=== PATIENT | female | born 1990 | race Asian ===

== ENCOUNTER 2021-08-02 13:15 | Inpatient (IN) | payer OTHER ==
[~2021-08-02] VITALS: Ht 170.2 cm; Wt 84.6 kg
[2021-08-02 13:39] VITALS: BP 121/67
[2021-08-02 14:49] LABS: ABSOLUTE NEUTROPHILS 5.9 thou/uL (1.4-8.2); BASOPHILS 0.3 % (0.0-2.0); HEMATOCRIT 37.8 % (37.0-47.0); HEMOGLOBIN 12.7 gm/dL (12.0-15.0); LYMPHOCYTES 6.5 % (24.0-44.0); MCH 28.9 pg (26.0-34.0); MCHC 33.5 g/dL (28.0-37.0); MCV 86.2 fL (80.0-100.0); MONOCYTES 2.8 % (1.0-8.0); PLATELET COUNT 139 thou/uL (150-400); POLYS 90.4 % (36.0-66.0); RBC 4.39 mil/uL (4.20-5.00); RDW 12.9 % (10.5-14.5); WBC 6.5 thou/uL (4.0-11.0)
[2021-08-02 15:15] LABS: CALCIUM 8.2 mg/dL (8.5-10.1); CREATININE 0.9 mg/dL (0.6-1.0); POTASSIUM 3.5 mmol/L (3.5-5.1)
[2021-08-02 15:25] LABS: ALBUMIN 3.4 g/dL (3.4-5.0); TOTAL BILIRUBIN 0.4 mg/dL (0.2-1.0); TOTAL PROTEIN 6.8 g/dL (6.4-8.2)
[2021-08-02 20:00] VITALS: BP 10/74
[2021-08-02 23:41] VITALS: BP 115/61
[2021-08-03 00:38] VITALS: BP 108/55
--- NOTE | 2021-08-03 01:40 | NUR ---
PT ADMITTED TO 3W ROOM 362, ARRIVED TO UNIT AT APPROXIMATELY 0030 ACCOMPANIED BY ED STAFF. PT ABLE TO AMBULATE AND SELF TRANSFER. PT IS A&OX4 AND ABLE TO COMMUNICATE WANTS AND NEEDS TO STAFF. PT IN COVID ISOLATION, PRESENTS WITH COUGH, SOB WITH EXERTION, MILD FEVER, WEAKNESS, HEADACHE. PT DOES DESATURATE WITH COUGHING, CURRENTLY ON 2L PER NASAL CANNULA WITH O2 SAT >94%. UP WITH STEADY GAIT TO BR. ORIENTED TO ROOM, BED CONTROLS. ADMISSION ASSESSMENTS CHARTED. WILL CONTINUE TO OBSERVE FOR CHANGES.
[2021-08-03 04:29] VITALS: BP 103/71
[2021-08-03 07:07] VITALS: BP 102/59
--- NOTE | 2021-08-03 09:48 | EKG ---
[place] [address] [facility] [place] [address] ELECTROCARDIOGRAM REPORT Name: ROSE GERARDO Room #: 362-P ADM IN M.R.#: [id number] Admission: 08/02/21 Attend Phys: Diana Cantor Discharge: Date of : 89 Report #: [id number] [facility] ED Test Date: 2021-08-02 Test Time: 15:23:13 Pat Name: ROSE GERARDO Department: Room: [facility] Gender: F Wealth Management Advisor: AIDA : 1990 Requested By: Vu Cardenas Order Number: [id number] MD: Anthony Rashid Measurements Intervals [place] Rate: 80 P: 35 SD: 148 QRS: 21 QRSD: 93 T: 8 QT: 407 QTc: 470 Interpretive Statements Sinus rhythm No significant abnormality Compared to ECG 08/18/2005 08:59:31 No significant changes Electronically Signed On 08-03-2021 9:48:46 THERMOFORMING MACHINE OPERATOR by Anthony Rashid [email or web address] <ELECTRONICALLY SIGNED> By: Anthony Rashid MD, [facility] 08/03/21 0948 1523 1523 Anthony Rashid MD, FACC /EPI
[2021-08-03 11:03] VITALS: BP 111/56
[2021-08-03 15:29] VITALS: BP 99/5
--- NOTE | 2021-08-03 18:58 | NUR ---
A/O X4. OFF O2. 92% ON RA. UP AD TIMOTHY. AFEBRILE. SLOWLY TOWARDS POC GOALS.
[2021-08-03 19:33] VITALS: BP 114/67
--- NOTE | 2021-08-03 22:23 | NUR ---
PT RESTING IN BED WATCHING TV. DRY COUGH. PRN FOR SLEEP AND COUGH PROVIDED. PT RECEIVED IV MEDICATION. PT DECLINED A SNACK. PT INDEP CALLS FOR ASSIST.
[2021-08-04 03:26] VITALS: BP 96/56
[2021-08-04 05:47] LABS: ALBUMIN 2.9 g/dL (3.4-5.0); CALCIUM 8.8 mg/dL (8.5-10.1); CREATININE 0.7 mg/dL (0.6-1.0); DIRECT BILIRUBIN 0.1 mg/dL (<0.1-0.2); PHOSPHORUS 3.1 mg/dL (2.5-4.9); TOTAL BILIRUBIN 0.3 mg/dL (0.2-1.0); TOTAL PROTEIN 6.6 g/dL (6.4-8.2)
[2021-08-04 07:30] VITALS: BP 104/62
--- NOTE | 2021-08-04 07:32 | HC ---
[facility] [place] [address] CONSULTATION Name: ROSE GERARDO Room #: 362-P ADM IN M.R.#: [id number] Admission: 08/02/21 Attend Phys: Diana Cantor Discharge: Date of : 89 Report #: [id number] THIS REPORT FOR: cc: Zen Pimentel MD [facility] - Family physician unknown Lele Escobar MD ~ DATE OF SERVICE: 08/03/2021 INFECTIOUS DISEASE CONSULTATION ATTENDING PHYSICIAN: Dr. Cantor. REASON FOR EVALUATION: COVID-19 infection. HISTORY OF PRESENT ILLNESS: Chart reviewed. The patient examined. 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 Has not been on immunosuppressive therapy, presented with a febrile illness primarily, has had some cough, gastrointestinal related signs and symptoms and was confirmed to have COVID positive test several days ago. On presentation, chest x-ray did show bilateral infiltrates, suggestive of pneumonitis. Influenza antigen testing was negative. She was found to be hypoxic, placed on supplemental oxygen 2 L per nasal cannula. She was initiated on therapy with Levaquin, remdesivir, corticosteroids. ALLERGIES: None. CURRENT MEDICATIONS: Include guaifenesin, enoxaparin, levofloxacin, dexamethasone, remdesivir. PAST MEDICAL HISTORY: History of pemphigus. SOCIAL HISTORY: Nonsmoker, no illicit drug use. Occasional ethanol. FAMILY HISTORY: Noncontributory. REVIEW OF SYSTEMS: Otherwise, unremarkable with the exception of the above. PHYSICAL EXAMINATION: GENERAL: She is alert, lucid, mild to moderate distress. VITAL SIGNS: Temperature on admission 103.2, more recently 97.8, pulse 61, respirations 18, blood pressure 102/59. SKIN: Warm, dry, no rashes. HEENT: Normocephalic. Extraocular muscles intact. NECK: Supple. LUNGS: Few scattered crackles at the bases. HEART: Regular. I do not appreciate a murmur. [facility] [address] [place] [address] CONSULTATION Name: ROSE GERARDO [facility] Room #: 362-[facility] IN M.R.#: [id number] Admission: 08/02/21 Attend Phys: Diana Cantor Discharge: Date of : 89 Report #: [id number] ABDOMEN: Soft, nontender. EXTREMITIES: No cyanosis. GENITOURINARY AND RECTAL: Deferred. LABORATORY DATA: Electrolytes: Sodium 132, potassium 3.5, chloride 98, bicarbonate is 19, BUN and creatinine 31 and 0.9, AST of 62, ALT of 29, albumin 3.4. CBC: White count 6.5, H and H 12.7 and 37.8, platelets of 139. ASSESSMENT AND PLAN: COVID-19 infection, complicated by pneumonitis. We will continue current approach as prescribed with remdesivir, corticosteroids. She does have evidence of bilateral pneumonitis on chest x-ray, although minimally symptomatic other than a cough; however, had high fevers, can exclude a secondary bacterial pneumonitis. ____ will continue Levaquin at this point as well. We will try to collect a sputum if able. At this point, she is not overtly toxic. We will add incentive spirometry. Monitor expectantly. If would deteriorate, would add some baricitinib. <ELECTRONICALLY SIGNED> By: Lele Escobar MD 08/04/21 0732 0843 [id number] Lele Escobar MD /nt
[2021-08-04] MEDS ORDERED: DEXAMETHASONE6 MG PO (09:31)
[2021-08-04] MEDS ORDERED: GUAIFEN-CODEINE10 ML PO (09:32)
[2021-08-04] MEDS ORDERED: ASA81BEC PO (09:32)
[2021-08-04 11:12] VITALS: BP 104/62
--- NOTE | 2021-08-04 12:38 | NUR ---
DISCHARGE NOTE: GAVE PT DISCHARGE INFORMATION. SCRIPTS GIVEN, WENT OVER NEW MEDICATION INFORMATION. DC IV AND TELEMETRY. ALL BELONGINGS WITH PT. WAITING FOR RIDE HOME WITH BOYFRIEND. WILL CONTINUE TO MONITOR.
[2021-08-05] MEDS ORDERED: ASA81BEC PO (12:01)
[2021-08-05] MEDS ORDERED: GUAIFEN-CODEINE10 ML PO (12:01)
[2021-08-05] MEDS ORDERED: DECADRON6 MG PO (12:01)
== END 2021-08-04 12:59 | disposition home or self-care (01) | DRG 177 ==
LOC: ER 13:15 → 3W 16:51 → EROBS 16:51 → 3W 08-03 00:26
PROVIDERS: Emergency Medicine; ADMIT Hospitalist; ATTEND Hospitalist
PROC: XW033E5 Introduction of Remdesivir Anti-infective into Peripheral Vein, Percutaneous Approach, New Technology Group 5 (ICD-10-PCS; principal; 2021-08-02)
DX: U07.1 COVID-19 (principal); J12.82 Pneumonia due to coronavirus disease 2019; J96.91 Respiratory failure, unspecified with hypoxia; L10.0 Pemphigus vulgaris; Z79.82 Long term (current) use of aspirin; Z79.899 Other long term (current) drug therapy
CPT/HCPCS: 10879

== ENCOUNTER 2021-08-08 14:50 | Inpatient (IN) | payer OTHER ==
[~2021-08-08] VITALS: Ht 170.2 cm; Wt 81.6 kg
[~2021-08-08 14:50] MED LIST: ASA81BEC PO; DECADRON6 MG PO; DEXAMETHASONE6 MG PO; GUAIFEN-CODEINE10 ML PO
[2021-08-08 15:17] LABS: BE(vivo) -0.2 mmol/L (-2 to +3); HCO3 21.7 mmol/L (22.0-26.0); PCO2 28.6 mmHg (35.0-45.0); PO2 71.2 mmHg (80.0-100.0); pH 7.497 (7.360-7.450); sO2 95.7 % (92.0-98.0)
[2021-08-08 15:41] LABS: ABSOLUTE NEUTROPHILS 7.7 thou/uL (1.4-8.2); BASOPHILS 0.3 % (0.0-2.0); EOSINOPHILS 0.9 % (0.0-3.0); HEMATOCRIT 44.6 % (37.0-47.0); HEMOGLOBIN 14.6 gm/dL (12.0-15.0); LYMPHOCYTES 13.7 % (24.0-44.0); MCH 28.6 pg (26.0-34.0); MCHC 32.8 g/dL (28.0-37.0); MCV 87.2 fL (80.0-100.0); MONOCYTES 7.1 % (1.0-8.0); PLATELET COUNT 295 thou/uL (150-400); RBC 5.11 mil/uL (4.20-5.00); RDW 12.8 % (10.5-14.5); WBC 9.9 thou/uL (4.0-11.0)
[2021-08-08 15:53] LABS: CALCIUM 8.8 mg/dL (8.5-10.1); CREATININE 0.9 mg/dL (0.6-1.0); POTASSIUM 3.3 mmol/L (3.5-5.1)
[2021-08-08 16:04] LABS: ALBUMIN 3.1 g/dL (3.4-5.0); TOTAL BILIRUBIN 0.5 mg/dL (0.2-1.0); TOTAL PROTEIN 6.7 g/dL (6.4-8.2)
[2021-08-08 18:27] VITALS: BP 104/53
[2021-08-08 19:33] VITALS: BP 110/57
[2021-08-08 19:45] VITALS: BP 111/55
[2021-08-09] VITALS: BP 109/50
[2021-08-09 03:17] LABS: HEMOGLOBIN 14.2 gm/dL (12.0-15.0); MCHC 32.2 g/dL (28.0-37.0); MCV 90.1 fL (80.0-100.0); PLATELET COUNT 246 thou/uL (150-400); RBC 4.88 mil/uL (4.20-5.00); RDW 12.7 % (10.5-14.5); WBC 3.9 thou/uL (4.0-11.0)
[2021-08-09 03:37] VITALS: BP 120/75
[2021-08-09 03:57] LABS: ANION GAP 15 mmol/L (7-16); BUN 15 mg/dL (7-18); CALCIUM 8.7 mg/dL (8.5-10.1); CHLORIDE 104 mmol/L (98-107); CO2 20 mmol/L (21-32); CREATININE 0.3 mg/dL (0.6-1.0); DIRECT BILIRUBIN < 0.1 mg/dL (<0.1-0.2); GLUCOSE 166 mg/dL (74-106); MAGNESIUM 2.3 mg/dL (1.8-2.4); SGOT 62 U/L (15-37); SGPT 56 U/L (30-65); SODIUM 139 mmol/L (136-145); TOTAL BILIRUBIN 0.6 mg/dL (0.2-1.0); TOTAL PROTEIN 6.4 g/dL (6.4-8.2)
--- NOTE | 2021-08-09 04:27 | NUR ---
ADMIT PT ADMITTED TO ROOM 356 FROM ED BEING ADMITTED WITH COVID PNEUMONIA. TO FLOOR VIA CART TRANSFERRED SELF TO BED VSS. ORIENTED TO ROOM CALL LIGHT AND POC. IV ANTIBIOTICS ADMINISTERED ORDERED. MRSA SWAB AND UA SENT TO LAB PER ORDER. CAME TO FLOOR ON OPTIFLOW BUT CHANGED TO HIGH FLOW CANULA AT 3 LITERS SATS IN MID 90'S.
[2021-08-09 05:58] LABS: ABSOLUTE NEUTROPHILS 3.2 thou/uL (1.4-8.2); METAMYELOCYTES 1 %; MYELOCYTES 1 %
[2021-08-09 07:29] VITALS: BP 118/71
[2021-08-09 08:04] LABS: URINE BILIRUBIN NEGATIVE (Negative); URINE BLOOD 1+ (Negative); URINE CLARITY CLEAR; URINE COLOR YELLOW; URINE GLUCOSE-RANDOM* NEGATIVE (Negative); URINE KETONES NEGATIVE (Negative); URINE LEUKOCYTES-REFLEX NEGATIVE (Negative); URINE NITRITE-REFLEX NEGATIVE (Negative); URINE PROTEIN (DIPSTICK) NEGATIVE (Negative); URINE SPECIFIC GRAVITY <= 1.005 (1.005-1.035)
[2021-08-09 08:13] LABS: BACTERIA-REFLEX 1-9 Few /HPF (None Seen); CASTS None Seen /LPF (None Seen); CRYSTALS None Seen /LPF (None Seen); SQUAMOUS 4-10 Moderate /LPF (0-3); URINE RBC 1-2 Rare /HPF (NONE SEEN); URINE WBC-REFLEX 0-5 Rare /HPF (0-5)
[2021-08-09 09:06] LABS: INR 0.96; PROTIME 10.5 Seconds (10.5-12.1)
--- NOTE | 2021-08-09 10:41 | NUR ---
PLEASE SEE OT VARIANCE
[2021-08-09 11:22] VITALS: BP 103/58
[2021-08-09 13:48] LABS: CALCIUM 8.8 mg/dL (8.5-10.1); CREATININE 0.7 mg/dL (0.6-1.0)
[2021-08-09 13:54] LABS: ALBUMIN 2.8 g/dL (3.4-5.0); TOTAL BILIRUBIN 0.3 mg/dL (0.2-1.0); TOTAL PROTEIN 6.2 g/dL (6.4-8.2)
[2021-08-09 13:58] LABS: POTASSIUM 3.9 mmol/L (3.5-5.1)
[2021-08-09 15:26] VITALS: BP 109/56
--- NOTE | 2021-08-09 19:45 | NUR ---
RN ASSUMED PT'S CARE AT 0700-1900PM, PT IS A&OX4, PT IS ON O2 3-4L/MIN/NC AT DAY SHIFT, BUT PT STILL HAS COUGHING AND SOB WITH ACTIVITIES, PT IS CONTINUING IV ABX AND TREAT COVID MEDICATIONS. PT DENIES PAIN AT DAY SHIFT.
[2021-08-09 19:46] VITALS: BP 113/73
--- NOTE | 2021-08-09 21:32 | HC ---
[facility] [place] [address] [place] [address] CONSULTATION Name: ROSE GERARDO Room #: 356-P ADM IN M.R.#: [id number] Admission: 08/08/21 Attend Phys: Edin Escobar MD Discharge: Date of : 89 Report #: [id number] THIS REPORT FOR: cc: FAM - No family physician/PCP FAM - No family physician/PCP Tani Benitez MD ~ DATE OF SERVICE: 08/08/2021 INFECTIOUS DISEASES CONSULTATION REASON FOR CONSULTATION: I was asked to evaluate concerning COVID-19 pneumonia. HISTORY OF PRESENT ILLNESS: The patient is a 30-year-old with no previous pulmonary history, diagnosed with COVID-19 approximately 2 weeks ago. Hospitalized on 08/02/2021, received 24 hours of treatment and improved. She was discharged on the , only to have progressive shortness of breath that worsened this a.m., necessitating return to the Emergency Room where she was hypoxic. She is now on high-flow oxygen 50 liters to maintain O2 saturations above 90%. She has had intermittent nonproductive cough. Has had some nasal discharge. No bloody discharge. No headaches, anosmia, nausea, vomiting or diarrhea. No previous history of pneumonia. No HIV risk or history of hepatitis or tuberculosis. She has a previous history of pemphigus, but has not had any skin lesions for over 2 years. REVIEW OF SYSTEMS: A 14-point review of system was negative other than what has been described above. ALLERGIES: None. MEDICATIONS: As noted on her MAR. PAST MEDICAL HISTORY: Pemphigus. FAMILY HISTORY: Coronary artery disease. SOCIAL HISTORY: Nonsmoker, no significant alcohol intake. No HIV risk. PHYSICAL EXAMINATION: GENERAL: She is afebrile and hemodynamically stable. She was alert, cooperative, short of breath with any activity. SKIN: Without rash or decubitus. No palpable adenopathy. HEENT: Eyes without scleral icterus. Mouth without mucositis. NECK: Supple. LUNGS: Coarse breath sounds posteriorly, mostly in the bases with fine crackles also heard. She would cough on deep inspiration. HEART: Regular, without murmur, gallop or rub. [facility] [address] [place] [address] CONSULTATION Name: ROSE GERARDO [facility] Room #: 356-P [facility] IN M.R.#: [id number] Admission: 08/08/21 Attend Phys: Edin Escobar MD Discharge: Date of : 89 Report #: [id number] ABDOMEN: Soft and nontender. No hepatosplenomegaly or mass. GENITORECTAL: Examination not performed. EXTREMITIES: With no clubbing, cyanosis or edema. NEUROLOGIC: Cranial nerves intact and strength in the upper and lower extremities was symmetric and within normal limits. PSYCHIATRIC: Mood without anxiety. LABORATORY DATA: Reviewed. IMAGING: CT scan of the chest reviewed. MICROBIOLOGY: Reviewed. IMPRESSION: 1. A 30-year-old with COVID-19 pneumonia, bilateral pulmonary infiltrates and respiratory failure. She is now 2 weeks into her infection and is in the accelerated inflammatory stage with bilateral infiltrates, now on 15 liters of oxygen. 2. History of pemphigus vulgaris. RECOMMENDATION: We used combination corticosteroids and IL-6 inhibitor. We will continue remdesivir for the next 5 days. She will be on antibiotic therapy as well until cultures are back. I discussed with the patient overall plan of care and drugs to be used. She was in agreement. <ELECTRONICALLY SIGNED> By: Tani Benitez MD 08/09/212131 06 51 Tani Benitez MD /nt
--- NOTE | 2021-08-09 22:03 | NUR ---
PT RESTING IN BED. O2 PER NC. LUNGS CRACKLES, SOA NOTED WITH CONVERSATION. PT REQUESTED FRUIT HS SNACK AND PROVIDED. PT USING BSC INDEPENDENTLY. PT INSTRUCTED ON USE OF IS BY RESPIRATORY. PT VERBALIZED UNDERSTANDING ON PLACEMENT OF SCDS. DISCUSSED LOW HR WITH PT AND POSSIBLE NEED TO AWAKEN DURING SLEEP.
[2021-08-10 05:07] VITALS: BP 116/61
[2021-08-10 06:37] LABS: ALBUMIN 2.9 g/dL (3.4-5.0); ANION GAP 11 mmol/L (7-16); BUN 15 mg/dL (7-18); CALCIUM 8.8 mg/dL (8.5-10.1); CHLORIDE 106 mmol/L (98-107); CO2 25 mmol/L (21-32); CREATININE 0.6 mg/dL (0.6-1.0); DIRECT BILIRUBIN < 0.1 mg/dL (<0.1-0.2); GLUCOSE 97 mg/dL (74-106); PHOSPHORUS 3.9 mg/dL (2.5-4.9); POTASSIUM 3.8 mmol/L (3.5-5.1); SGOT 23 U/L (15-37); SGPT 44 U/L (30-65); TOTAL BILIRUBIN 0.3 mg/dL (0.2-1.0); TOTAL PROTEIN 6.2 g/dL (6.4-8.2)
[2021-08-10 06:40] LABS: SODIUM 142 mmol/L (136-145)
[2021-08-10 07:43] VITALS: BP 114/64
[2021-08-10 11:13] VITALS: BP 103/60
[2021-08-10 15:20] VITALS: BP 109/65
--- NOTE | 2021-08-10 19:30 | NUR ---
RN ASSUMED PT'S CARE AT 0700-1900PM, PT IS A&OX4, PT IS ON O2 2-3L/MIN/NC, PT'S O2SAT AND VS ARE STABLE AT DAY SHIFT, BUT PT HAS SOB WITH EXERTION, AND PT STILL HAS COUGHING, PT DENIES PAIN AT DAY SHIFT.
[2021-08-10 20:02] VITALS: BP 110/62
--- NOTE | 2021-08-10 23:54 | NUR ---
PT ALERT AND ORIENTED X4. VSS AFEBRILE. UNLABORED ON 3LNC. PT WALKS TO BR WITH GOOD STEADY GAIT. NO C/O PAIN., NO S/S DISTRESS.
[2021-08-11 04:15] VITALS: BP 116/61
[2021-08-11 04:18] VITALS: BP 116/66
--- NOTE | 2021-08-11 05:17 | NUR ---
PT PROGRESSING TOWARDS D/C GOALS. VSS. SATS WNL ON 3.LNC. NO C/O PAIN OR SOA TONIGHT.
[2021-08-11 06:56] LABS: HEMATOCRIT 42.4 % (37.0-47.0); HEMOGLOBIN 13.9 gm/dL (12.0-15.0); MCH 28.9 pg (26.0-34.0); MCHC 32.9 g/dL (28.0-37.0); MCV 87.7 fL (80.0-100.0); RBC 4.83 mil/uL (4.20-5.00); RDW 12.8 % (10.5-14.5); WBC 7.7 thou/uL (4.0-11.0)
[2021-08-11 07:11] LABS: HIV ANTIBODY Non Reactive (Non Reactive)
--- NOTE | 2021-08-11 07:34 | EKG ---
[address] [place] [address] ELECTROCARDIOGRAM REPORT Name: ROSE GERARDO Room #: 356-P ADM IN M.R.#: [id number] Admission: 08/08/21 Attend Phys: Edin Escobar MD Discharge: Date of : 89 Report #: [id number] [facility] ED Test Date: 2021-08-08 Test Time: 15:05:42 Pat Name: ROSE GERARDO Department: Room: 356 Gender: F Sap Bw Developer: : 1990 Requested By: Vu Cardenas Order Number: [id number] MD: Nirmal Glass Measurements Intervals [place] Rate: 77 P: 28 MS: 144 QRS: 10 QRSD: 83 T: 27 QT: 399 QTc: 452 Interpretive Statements Sinus rhythm Borderline T wave abnormalities Compared to ECG 08/02/2021 15:23:13 T-wave abnormality now present Electronically Signed On 08-11-2021 7:34:04 CANDY FEEDER by Nirmal Glass [email or web address] <ELECTRONICALLY SIGNED> By: Nirmal Glass MD, [facility] 08/11/21 0734 1505 1505 Nirmal Glass MD, FACC /EPI
--- NOTE | 2021-08-11 07:37 | EKG ---
[address] [email or web address] [address] ELECTROCARDIOGRAM REPORT Name: ROSE GERARDO Room #: 356- ADM IN M.R.#: [id number] Admission: 08/08/21 Attend Phys: Edin Escobar MD Discharge: Date of : 89 Report #: [id number] [facility] Test Date: 2021-08-09 Test Time: 08:58:06 Pat Name: ROSE GERARDO Department: Room: 356 Gender: F Supervisor Die Casting: JJ : 1990 Requested By: Edin Escobar Order Number: [id number] : Nirmal Glass Measurements Intervals [place] Rate: 42 P: 24 [place]: 159 QRS: 2 QRSD: 85 T: 16 QT: 515 QTc: 431 Interpretive Statements Sinus bradycardia Compared to ECG 08/08/2021 15:05:42 Sinus rhythm no longer present T-wave abnormality no longer present Electronically Signed On 08-11-2021 7:37:14 MANAGER MONEY by Nirmal Glass [email or web address] <ELECTRONICALLY SIGNED> By: Nirmal Glass MD, [facility] 08/11/21 0737 0858 7 Nirmal Glass MD, FACC /EPI
--- NOTE | 2021-08-11 07:38 | EKG ---
[address] [place] [employer] [address] ELECTROCARDIOGRAM REPORT Name: ROSE GERARDO Room #: 356- ADM IN M.R.#: [id number] Admission: 08/08/21 Attend Phys: Edin Escobar MD Discharge: Date of : 89 Report #: [id number] [facility] Test Date: 2021-08-09 Test Time: 17:38:04 Pat Name: ROSE GERARDO Department: Room: 356 Gender: F Antique Furniture Restorer: [facility] : 1990 Requested By: Edin Escobar Order Number: [id number] : Nirmal Glass Measurements Intervals [place] Rate: 48 P: 31 [place]: 168 QRS: 7 QRSD: 81 T: 9 QT: 491 QTc: 439 Interpretive Statements Sinus bradycardia Low voltage, precordial leads Compared to ECG 08/09/2021 08:58:06 Low QRS voltage now present Electronically Signed On 08-11-2021 7:38:06 RESEARCH GEOLOGIST by Nirmal Glass [email or web address] <ELECTRONICALLY SIGNED> By: Nirmal Glass MD, [facility] 08/11/21 0738 D: [id number] Nirmal Glass MD, FAC /EPI
[2021-08-11 07:48] VITALS: BP 104/54
[2021-08-11 09:33] LABS: BE(vivo) -0.5 mmol/L (-2 to +3); HCO3 21.9 mmol/L (22.0-26.0); PCO2 30.2 mmHg (35.0-45.0); pH 7.479 (7.360-7.450); sO2 89.5 % (92.0-98.0)
[2021-08-11 09:35] LABS: PO2 51.8 mmHg (80.0-100.0)
[2021-08-11 11:47] VITALS: BP 93/51
[2021-08-11 15:29] VITALS: BP 92/57
--- NOTE | 2021-08-11 16:33 | NUR ---
INITIAL ASSESSMENT: Received consult. SW reviewed chart and spoke with nursing and attending physician. Pt was admitted from home due to COVID pneumonia. Pt was recently hospitalized at [facility] and discharged home on 08/04. Pt placed in Enhanced Isolation. Pt is afebrile and is currently on 6L of O2. Pt is on IV abx and IV steroids. SW spoke with pt via phone. Introduced role of SW. Pt is alert/orientated x 4. Pt reports she lives at home alone. Prior to admission, pt was independent with ADLs. No use of DME. No hx of HH or post acute placement. Pt's PCP recently retired. Pt is interested in establishing primary care at [facility]. Contact info for [facility] provider groups placed in pt's discharge summary. SW is following to assist as needed with discharge planning.
[2021-08-11 18:55] VITALS: BP 99/58
--- NOTE | 2021-08-11 19:37 | NUR ---
RN ASSUMED PT'S CARE AT 0700-1900PM, PT IS A&OX4, BUT PT NEEDS MORE O2 , PT IS ON O2 5-6L/MIN/NC, PT HAS SOB WITH EXERTION, RN HAS CALLED DR ABOUT PT'S ABNORMAL ABG RESULTS, PT 'S COUGHING HAS IMPROVED, PT GETS UO TO CHAIR AND BATHROOM WITHOUT ASSIST.
[2021-08-12 05:27] VITALS: BP 95/60
--- NOTE | 2021-08-12 05:38 | NUR ---
Patient making slow progress towards outcome goals. Requires 4L/NC to maintain optimal oxygenation. Short of breath with activity requiring 5L/NC. Vital signs and rhythm stable. Braycardia 30's, patient asymptomatic. Up adlib without difficulty.
[2021-08-12 07:42] VITALS: BP 104/61
[2021-08-12 10:45] LABS: HEMATOCRIT 41.8 % (37.0-47.0); HEMOGLOBIN 13.8 gm/dL (12.0-15.0); MCHC 33.1 g/dL (28.0-37.0); MCV 87.6 fL (80.0-100.0); PLATELET COUNT 400 thou/uL (150-400); RBC 4.77 mil/uL (4.20-5.00); RDW 12.9 % (10.5-14.5); WBC 8.2 thou/uL (4.0-11.0)
[2021-08-12 11:06] LABS: CALCIUM 8.8 mg/dL (8.5-10.1); CREATININE 0.7 mg/dL (0.6-1.0); POTASSIUM 3.6 mmol/L (3.5-5.1); TOTAL BILIRUBIN 0.2 mg/dL (0.2-1.0); TOTAL PROTEIN 6.3 g/dL (6.4-8.2)
[2021-08-12 11:25] VITALS: BP 92/57
[2021-08-12 12:27] LABS: ABSOLUTE NEUTROPHILS 6.1 thou/uL (1.4-8.2); ATYPICAL LYMPHS 3 %
--- NOTE | 2021-08-12 13:38 | NUR ---
SW reviewed chart and spoke with nursing and attending physician. Pt remains in Enhanced Isolation due to COVID. Pt is afebrile. Pt is on 5L of O2 rest and needed up to 10L with activity earlier today. Pt is on IV abx and IV steroids. Plan is for pt to discharge home when medically stable. SW is following to assist as needed with discharge planning.
[2021-08-12 14:53] VITALS: BP 108/66
--- NOTE | 2021-08-12 16:23 | NUR ---
RN ASSUMED PT'S CARE AT 0700AM, PT IS A&OX4, PT IS ON O2 4-5L/MIN/NC AT RESTING, PT IS DE-SATTING WITH EXERTION, PT NEEDS O2 UP TO 10L/MIN/NC WITH ACTIVITIES, PT IS WORKING WITH PT, PT GETS UP TO CHAIR OR BATH ROOM BY HERSELF, PT IS CONTINUING IV ABX AND STEROIDS, PT'S COUGHING HAS IMPROVED.
[2021-08-12 19:15] VITALS: BP 1069/69
[2021-08-13 01:06] LABS: GLYCOHEMOGLOBIN (HGB A1C) 6.1 % (4.8-5.6)
[2021-08-13 03:32] VITALS: BP 114/60
--- NOTE | 2021-08-13 06:47 | NUR ---
Patient is alert and oriented x4. Patient is CC/ tele and has been sinus melecio this shift. Patient requires 5L of oxygen at rest and when transferring or with exertion patient requires up to 10L of oxygen. Patient is maintained on enhanced precautions. Patient is continent of both bowel and bladder this shift. Patient is up ad ryann. Patient has an IV in her right AC tat is patent and saline locked. Patient had throat lozenges added to her medication list as she was repoting sore throat due to coughing. Patient will continue to be monitored.
[2021-08-13 07:48] VITALS: BP 105/67
[2021-08-13 11:49] VITALS: BP 91/57
[2021-08-13] MEDS ORDERED: PREDNISONE 20 M20 M1 PO (13:08)
[2021-08-13] MEDS ORDERED: VITAMIN D325 MC2 PO (13:08)
[2021-08-13] MEDS ORDERED: CEFDINIR300 MG PO (13:08)
[2021-08-13] MEDS ORDERED: GUAIFEN-CODEINE10 ML PO (13:08)
[2021-08-13] MEDS ORDERED: PEPCID20 MG PO (13:08)
[2021-08-13] MEDS ORDERED: ZINC SULFATE50 MG PO (13:08)
[2021-08-13] MEDS ORDERED: PRENATAL PO (13:08)
[2021-08-13] MEDS ORDERED: VITAMIN C1000 MG PO (13:08)
[2021-08-13] MEDS ORDERED: CEPACOL SORE T1 EAC7 PO (13:08)
[2021-08-13] MEDS ORDERED: PROAIR HFA8.5 GM INH (13:08)
[2021-08-13] MEDS ORDERED: TESSALON PERLE100 MG PO (13:08)
[2021-08-13] MEDS ORDERED: VENTOLIN HFA 1818 GM INH (13:08)
[2021-08-13 13:27] VITALS: BP 91/57
--- NOTE | 2021-08-13 14:33 | NUR ---
DISCHARGE NOTE: ELIZABETH reviewed chart and spoke with nursing and attending physician. Pt remains in Enhanced Isolation due to COVID. Pt is afebrile and on 3L of O2. Pt is on IV steroids. Per attending physician, pt is medically stable for discharge home today. Rest/exercise oximetry completed. Pt does not qualify for home O2. Pt's O2 sat remained at 93% on room air and with activity. SW spoke with pt via phone. Discussed discharge plan. Pt is agreeable with discharging home today. Orders written for HH services. Pt states she is agreeable with HH since ordered by physician. Options for HH provided. No preference voiced. Pt's home address: [address] [place] [address]. [facility] [address] [facility] [address]. Pt does not currently have a PCP. ELIZABETH asked attending physician if he is able to follow for HH orders. ELIZABETH placed contact info for [facility] provider groups in pt's discharge summary. ELIZABETH encouraged pt to make an appt with a physician to establish primary care. Pt verbalized understanding. Pt states she will have transportation home later today. ELIZABETH faxed HH referral and discharge ppwk to [facility] . Notified HH liaison of new referral. Contact info for HH placed in pt's discharge summary. No additional SW needs identified at this time, but is avialable to assist should needs arise.
[2021-08-13 15:23] VITALS: BP 108/69
--- NOTE | 2021-08-13 16:55 | NUR ---
RN ASSUMED PT'S CARE AT 0700AM, PT IS A&OX4, PT IS OFF O2 TODAY, PT'S O2SAT STAY AT 92-95%, PT'S SOB AND COUGHING HAVE IMPROVED,RN RECEIVED ORDER TO DC PT TO HOME, PT'S VS AND O2SAT ARE STABLE BY THIS TIME, PT UNDERSTANDS DC TEACHING WELL , INCLUDING NEW MEDICATIONS, COVID ISOLATION UNTILL 08/22/21, AND F/U WITH ALL DRS, PT'S FAMILY WILL SENIOR MEDICAL BILLING SPECIALIST PT ABOUT 1730PM.
--- NOTE | 2021-08-13 17:55 | NUR ---
PT'S FAMILY ARMHOLE BASTER JUMPBASTING PT TO HOME NOW. PT IS HAPPY WITH CARE AT 3W.
[2021-08-14 09:26] LABS: T-SPOT.TB Negative
== END 2021-08-13 18:01 | disposition home health service (06) | DRG 871 ==
LOC: ER 14:50 → 3W 18:28 → EROBS 18:28 → 3W 19:29
PROVIDERS: Emergency Medicine; Specialist; ADMIT Internal Medicine; ATTEND Internal Medicine
DX: A41.9 Sepsis, unspecified organism (principal); U07.1 COVID-19; J12.82 Pneumonia due to coronavirus disease 2019; J80 Acute respiratory distress syndrome; L10.0 Pemphigus vulgaris; R65.20 Severe sepsis without septic shock; E87.5 Hyperkalemia; E88.09 Other disorders of plasma-protein metabolism, not elsewhere classified; Z82.49 Family history of ischemic heart disease and other diseases of the circulatory system
CPT/HCPCS: 10879

== ENCOUNTER → 2021-08-28 | Outpatient (CLI) | payer OTHER ==
[~2021-08-28] MED LIST changes: +CEFDINIR300 MG PO; +CEPACOL SORE T1 EAC7 PO; +PEPCID20 MG PO; +PREDNISONE 20 M20 M1 PO; +PRENATAL PO; +PROAIR HFA8.5 GM INH; +TESSALON PERLE100 MG PO; +VENTOLIN HFA 1818 GM INH; +VITAMIN C1000 MG PO; +VITAMIN D325 MC2 PO; +ZINC SULFATE50 MG PO
== END ==
LOC: RAD 11:07
PROVIDERS: ATTEND Internal Medicine
DX: R06.02 Shortness of breath (principal); J12.82 Pneumonia due to coronavirus disease 2019; Z86.16 Personal history of COVID-19

== ENCOUNTER → 2021-09-24 | Outpatient (CLI) | payer OTHER | LOC: RAD 13:14 | PROVIDERS: ATTEND Internal Medicine | DX: R91.8 Other nonspecific abnormal finding of lung field (principal); Z86.16 Personal history of COVID-19 ==